=== PATIENT | female | born 1965 | race Caucasian/White ===

== ENCOUNTER 2021-11-12 10:59 | Emergency (ER) | payer BC ==
[~2021-11-12] VITALS: Ht 165.1 cm; Wt 179.2 kg
[~2021-11-12 10:59] MED LIST: ALBU90I INH; ALBU90OI INH; AZIT250 PO; CLONIDINE; DIPH25; DIPH50 PO; HYDCHL25 PO; METPRE4DP PO; MULTCH; OXYACE5T PO; PRED10 PO; PRED20 PO; PROM25 PO; RANI150 PO; ZOLOFT
[2021-11-12 14:28] LABS: Appearance, Urine Clear (Clear); Blood, Urine Neg (Neg); Color, Urine Yellow (P-Yellow); Glucose Qualitative, Urine Neg (Neg); Ketones, Urine 1+ (Neg); Leukocyte Esterase, Urine 1+ (Neg); Nitrite, Urine Neg (Neg); Protein, Urine 2+ (Neg); Specific Gravity, Urine 1.025 (1.003-1.022); Urobilinogen, Urine 1+ (Normal)
[2021-11-12 14:38] LABS: Bilirubin, Urine 1+ (Neg)
[2021-11-12 14:39] LABS: Amorphous Light (0-Heavy); Bacteria Few /hpf; Mucus Mod (0-Heavy); Red Blood Cells, Urine 0-2 /hpf (0-2); Squamous Epithelial Cells Few /hpf (Few)
[2021-11-12] MEDS ORDERED: IBUP800 PO (14:52)
[2021-11-12] MEDS ORDERED: Norco 5-325 Ta1 EACH PO (14:52)
== END 2021-11-12 15:02 | disposition home or self-care (01) ==
LOC: ER 10:59
PROVIDERS: Emergency Medicine
DX: M47.26 Other spondylosis with radiculopathy, lumbar region (principal); Z91.040 Latex allergy status; Z87.442 Personal history of urinary calculi
CPT/HCPCS: 72100; 81001; 81025; 87086; A9270; J1170; J1885

== ENCOUNTER 2025-01-14 08:45 | Emergency (ER) | payer OTHER ==
[~2025-01-14] VITALS: Ht 165.1 cm; Wt 149.7 kg
[~2025-01-14 08:45] MED LIST changes: +IBUP800 PO; +Norco 5-325 Ta1 EACH PO
[2025-01-14] MEDS ORDERED: LISINOPRIL-HCT1 EACH PO (09:07)
[2025-01-14] MEDS ORDERED: NS 1,000 ML IV SCH (09:10)
[2025-01-14] MEDS ORDERED: HYDROmorphone HCl/Pf 1MG SYR IV ONE ×2 (09:10→11:55)
[2025-01-14] MEDS ORDERED: Ondansetron HCl 2 MG / ML 2ML Vial IV ONE (09:10)
[2025-01-14] MEDS ORDERED: Ketorolac Tromethamine 30mg Vial IV ONE (09:10)
[2025-01-14 09:44] LABS: Source, Urine Straight Cath
[2025-01-14 09:49] LABS: Bilirubin, Urine Neg (Neg); Blood, Urine Neg (Neg); Glucose Qualitative, Urine Neg (Neg); Ketones, Urine Neg (Neg); Leukocyte Esterase, Urine Neg (Neg); Nitrite, Urine Neg (Neg); Protein, Urine Neg (Neg); Urobilinogen, Urine NORM (Normal)
[2025-01-14 09:50] LABS: Appearance, Urine Clear (Clear); Color, Urine Pale Yellow (P-Yellow)
[2025-01-14 09:53] LABS: BASOPHILS ABSOLUTE AUTO 0.07 K/mm3 (0.00-0.23); BASOPHILS PERCENT AUTO 1 % (0-2); EOSINOPHILS ABSOLUTE AUTO 0.45 K/mm3 (0.00-0.68); EOSINOPHILS PERCENT AUTO 6 % (0-6); Hemoglobin 14.2 g/dL (11.5-16.0); IMMATURE GRAN ABSOLUTE AUTO 0.03 K/mm3 (0.00-0.10); IMMATURE GRAN PERCENT AUTO 0 % (0-1); LYMPHOCYTES ABSOLUTE AUTO 2.87 K/mm3 (0.84-5.20); LYMPHOCYTES PERCENT AUTO 40 % (21-46); MONOCYTES ABSOLUTE AUTO 0.56 K/mm3 (0.16-1.47); MONOCYTES PERCENT AUTO 8 % (4-13); Mean Corpuscular HGB 30.3 pg (26.0-34.0); Mean Corpuscular HGB Conc 34.6 g/dL (31.5-36.5); Mean Corpuscular Volume 88 fL (80-100); Mean Platelet Volume 10.7 fL (9.1-12.4); NEUTROPHILS ABSOLUTE AUTO 3.21 K/mm3 (1.96-9.15); NEUTROPHILS PERCENT AUTO 45 % (41-73); Platelet Count 225 K/mm3 (150-400); RDW Coefficient Variation 12.5 % (11.7-14.2); RDW Standard Deviation 39.7 fL (35.1-46.3); Red Blood Cell Count 4.68 M/mm3 (3.80-5.20); White Blood Cell Count 7.19 K/mm3 (4.00-11.30)
[2025-01-14 10:13] LABS: Albumin, Blood 3.7 g/dL (3.4-5.0); Bilirubin, Total 0.4 mg/dL (0.1-1.0); Bun/Creatinine Ratio 23.3 (12.0-20.0); Calcium, Blood 8.9 mg/dL (8.5-10.1); Creatinine, Blood 0.99 mg/dL (0.40-1.00); Globulin, Blood 3.7 g/dL (2.2-4.0); Potassium, Blood 3.7 mmol/L (3.5-5.5); Total Protein, Blood 7.4 g/dL (6.4-8.2)
[2025-01-14] MEDS ORDERED: Percocet 5-3251 EACH PO (11:44)
[2025-01-14] MEDS ORDERED: TAMS.4ER PO (11:44)
[2025-01-14 12:00] VITALS: BP 149/83
== END 2025-01-14 12:06 | disposition home or self-care (01) ==
LOC: ER 08:45
PROVIDERS: Emergency Medicine
DX: N13.2 Hydronephrosis with renal and ureteral calculous obstruction (principal); I10 Essential (primary) hypertension; Z87.442 Personal history of urinary calculi; Z91.040 Latex allergy status; Z79.899 Other long term (current) drug therapy
CPT/HCPCS: 74177; 80053; 81003; 85025; 96374-59; 96375; 96376; 99284-25; J1171; J1885; J2405; J7030; P9612; Q9967

== ENCOUNTER 2025-06-03 18:18 | Observation (INO) | payer OTHER ==
[~2025-06-03] VITALS: Ht 165.1 cm; Wt 160.0 kg
[~2025-06-03 18:18] MED LIST changes: +LISINOPRIL-HCT1 EACH PO; +Percocet 5-3251 EACH PO; +TAMS.4ER PO
[2025-06-03] MEDS ORDERED: Lidocaine 2% Jelly Uro-Jet TOP ONE (21:00)
[2025-06-03 23:40] LABS: BASOPHILS ABSOLUTE AUTO 0.08 K/mm3 (0.00-0.23); BASOPHILS PERCENT AUTO 1 % (0-2); EOSINOPHILS ABSOLUTE AUTO 0.37 K/mm3 (0.00-0.68); EOSINOPHILS PERCENT AUTO 5 % (0-6); Hematocrit 38.3 % (33.0-51.0); Hemoglobin 13.0 g/dL (11.5-16.0); IMMATURE GRAN ABSOLUTE AUTO 0.05 K/mm3 (0.00-0.10); IMMATURE GRAN PERCENT AUTO 1 % (0-1); LYMPHOCYTES ABSOLUTE AUTO 3.66 K/mm3 (0.84-5.20); LYMPHOCYTES PERCENT AUTO 47 % (21-46); MONOCYTES ABSOLUTE AUTO 0.70 K/mm3 (0.16-1.47); MONOCYTES PERCENT AUTO 9 % (4-13); Mean Corpuscular HGB Conc 33.9 g/dL (31.5-36.5); Mean Corpuscular Volume 90 fL (80-100); NEUTROPHILS ABSOLUTE AUTO 2.94 K/mm3 (1.96-9.15); NEUTROPHILS PERCENT AUTO 38 % (41-73); NRBC ABSOLUTE 0.00 K/mm3 (0.00-0.02); NRBC Auto 0.0 /100 WBC (0.0-0.2); Platelet Count 213 K/mm3 (150-400); RDW Coefficient Variation 13.0 % (11.7-14.2); RDW Standard Deviation 42.9 fL (35.1-46.3)
[2025-06-03 23:56] LABS: Anion Gap 8.0 mmol/L (3-11); Blood Urea Nitrogen 21.0 mg/dL (8-24); CO2, Blood 26.0 mmol/L (21-32); Calcium, Blood 8.0 mg/dL (8.5-10.1); Chloride, Blood 110.0 mmol/L (98-108); Creatinine, Blood 0.85 mg/dL (0.40-1.00); Glucose, Blood 86.0 mg/dL (70-99); Potassium, Blood 3.5 mmol/L (3.5-5.5); Sodium, Blood 140.0 mmol/L (136-145)
[2025-06-04 02:24] VITALS: BP 113/75
[2025-06-04 05:44] LABS: Alanine Aminotransfer (ALT/SGP 20.0 U/L (12-78); Albumin, Blood 3.0 g/dL (3.4-5.0); Albumin/Globulin Ratio 0.9 (0.8-1.8); Anion Gap 10.0 mmol/L (3-11); Aspartate Aminotrans (AST/SGOT 17.0 U/L (12-37); Bilirubin, Total 0.3 mg/dL (0.1-1.0); Blood Urea Nitrogen 18.0 mg/dL (8-24); CO2, Blood 23.0 mmol/L (21-32); Calcium, Blood 8.3 mg/dL (8.5-10.1); Chloride, Blood 111.0 mmol/L (98-108); Creatinine, Blood 0.78 mg/dL (0.40-1.00); Globulin, Blood 3.5 g/dL (2.2-4.0); Glucose, Blood 91.0 mg/dL (70-99); Magnesium, Blood 1.9 mg/dL (1.6-2.4); Potassium, Blood 3.9 mmol/L (3.5-5.5); Sodium, Blood 140.0 mmol/L (136-145); Total Protein, Blood 6.5 g/dL (6.4-8.2)
[2025-06-04 06:19] LABS: BASOPHILS ABSOLUTE AUTO 0.06 K/mm3 (0.00-0.23); BASOPHILS PERCENT AUTO 1 % (0-2); EOSINOPHILS ABSOLUTE AUTO 0.33 K/mm3 (0.00-0.68); EOSINOPHILS PERCENT AUTO 5 % (0-6); Hematocrit 36.8 % (33.0-51.0); Hemoglobin 12.6 g/dL (11.5-16.0); IMMATURE GRAN ABSOLUTE AUTO 0.04 K/mm3 (0.00-0.10); IMMATURE GRAN PERCENT AUTO 1 % (0-1); LYMPHOCYTES ABSOLUTE AUTO 3.19 K/mm3 (0.84-5.20); LYMPHOCYTES PERCENT AUTO 50 % (21-46); MONOCYTES ABSOLUTE AUTO 0.61 K/mm3 (0.16-1.47); MONOCYTES PERCENT AUTO 10 % (4-13); Mean Corpuscular HGB Conc 34.2 g/dL (31.5-36.5); Mean Corpuscular Volume 90 fL (80-100); NEUTROPHILS ABSOLUTE AUTO 2.13 K/mm3 (1.96-9.15); NEUTROPHILS PERCENT AUTO 34 % (41-73); NRBC ABSOLUTE 0.00 K/mm3 (0.00-0.02); NRBC Auto 0.0 /100 WBC (0.0-0.2); Platelet Count 191 K/mm3 (150-400); RDW Coefficient Variation 12.9 % (11.7-14.2); RDW Standard Deviation 42.9 fL (35.1-46.3)
[2025-06-04 08:04] VITALS: BP 112/70
[2025-06-04 16:35] VITALS: BP 139/77
== END 2025-06-04 17:35 | disposition left against medical advice (07) ==
LOC: ER 18:18 → MEDS 18:19
PROVIDERS: Emergency Medicine; ADMIT Student in an Organized Health Care Education/Training Program
DX: T83.123A Displacement of other urinary stents, initial encounter (principal); N20.0 Calculus of kidney; I10 Essential (primary) hypertension; E66.01 Morbid (severe) obesity due to excess calories; Z68.43 Body mass index [BMI] 50.0-59.9, adult; Z53.29 Procedure and treatment not carried out because of patient's decision for other reasons; Z79.899 Other long term (current) drug therapy; Z91.040 Latex allergy status; Y73.3 Surgical instruments, materials and gastroenterology and urology devices (including sutures) associated with adverse incidents
CPT/HCPCS: 36415; 51701; 76770; 80048; 80053; 82947; 83735; 85025; 99284-25; G0378

== ENCOUNTER → 2025-10-19 | Outpatient (CLI) | payer OTHER ==
[2025-10-24 13:17] LABS: CALCIUM, URINE - PER 24H 106 mg/d (100-250); CALCIUM, URINE - PER VOLUME 4.6 mg/dL; CHLORIDE, URINE - PER 24H 237 mmol/d (140-250); CHLORIDE, URINE - PER VOLUME 103 mmol/L; CITRIC ACID, URINE - PER 24H 796 mg/d (320-1240); CITRIC ACID,URINE - PER VOLUME 346 mg/L; CREATININE, URINE - PER 24H 1403 mg/d (500-1400); CREATININE, URINE - PER VOLUME 61 mg/dL; HOURS COLLECTED 24 hr; MAGNESIUM, URINE - PER VOLUME 4.2 mg/dL; MAGNESIUM, URINE PER 24H 97 mg/d (12-199); OXALATE, URINE - PER 24H 34 mg/d (13-40); OXALATE, URINE - PER VOLUME 15 mg/L; PHOSPHORUS, URINE - PER 24H 1173 mg/d (400-1300); PHOSPHORUS, URINE - PER VOLUME 51 mg/dL; POTASSIUM, URINE - PER 24H 62 mmol/d (25-125); POTASSIUM, URINE - PER VOLUME 27 mmol/L; SODIUM, URINE - PER 24H 308 mmol/d (51-286); SODIUM, URINE - PER VOLUME 134 mmol/L; SULFATE, URINE - PER 24H 32 mmol/d (6-30); SULFATE, URINE - PER VOLUME 14 mmol/L; URIC ACID, URINE - PER 24H 649 mg/d (250-750); URIC ACID, URINE - PER VOLUME 28.2 mg/dL; URINE SUPERSATURATION INTERP Normal; URINE SUPERSATURATION, CAHPO4 0.87; URINE SUPERSATURATION, CAOX 1.54; URINE SUPERSATURATION, UA CALC 0.19
== END | disposition home or self-care (01) ==
LOC: LAB SHORT 03:00 → LAB 03:00 → LAB FUT 08-24 10:20
PROVIDERS: Physician Assistant Medical
DX: N20.0 Calculus of kidney (principal)
CPT/HCPCS: 81003; 81050; 82131; 82140; 82340; 82436; 82507; 82570; 83735; 83935; 83945; 84105; 84133; 84300; 84392; 84560